=== PATIENT | female | born 1980 | race Caucasian/White ===

== ENCOUNTER 2017-01-01 22:04 | Emergency (ER) | payer BC, MEDICAID ==
[~2017-01-01] VITALS: Ht 160 cm; Wt 53.0 kg
[~2017-01-01 22:04] MED LIST: ACET-141 PO
[2017-01-01 22:28] VITALS: Ht 160 cm; Wt 53.0 kg
[2017-01-01] MEDS ORDERED: SOD CHLORIDE 0.9% 1,000 ML IV STA (23:13)
[2017-01-01] MEDS ORDERED: ONDANSETRON 4 MG INJ IV STA (23:13)
[2017-01-01] MEDS ORDERED: morphine 4 MG/ML VIAL IV STA (23:13)
[2017-01-01 23:50] LABS: ABNORMAL IP MESSAGE 1; HEMATOCRIT 35.1 % (37.0-47.0); HEMOGLOBIN 11.3 g/dl (12.0-16.0); MEAN CORPUSCULAR HEMOGLOBIN 26.9 pg (29.0-33.0); MEAN CORPUSCULAR HGB CONC 32.2 g/dl (32.0-37.0); MEAN CORPUSCULAR VOLUME 83.6 fl (82.0-101.0); MEAN PLATELET VOLUME 12.8 fl (7.4-10.4); PLATELET COUNT 114 10^3/UL (140-415); RED CELL DISTRIBUTION WIDTH 15.1 % (11.5-14.5); WHITE BLOOD COUNT 10.4 10^3/ul (4.8-10.8)
[2017-01-02 00:05] LABS: ALBUMIN 4.2 g/dl (3.3-4.9); ALBUMIN/GLOBULIN RATIO 1.2; BILIRUBIN,INDIRECT 0.3 mg/dl (0-1.1); BILIRUBIN,TOTAL 0.3 mg/dl (0.2-1.3); CALCIUM 9.4 mg/dl (8.4-10.2); CREATININE 0.91 mg/dl (0.44-1.00); POTASSIUM 3.1 mmol/L (3.5-5.1); TOTAL PROTEIN 7.7 g/dl (6.1-8.1)
[2017-01-02 00:08] LABS: POSITIVE DIFF @See below
[2017-01-02 00:20] LABS: ADD UMIC YES; UR ASCORBIC ACID NEGATIVE (NEGATIVE); UR BACTERIA FEW /HPF (NONE SEEN); UR BILIRUBIN (Dip) NEGATIVE (NEGATIVE); UR BLOOD (Dip) 2+ mg/dL (NEGATIVE); UR CLARITY CLEAR (CLEAR); UR COLOR YELLOW (YELLOW); UR GLUCOSE (Dip) NEGATIVE (NEGATIVE); UR KETONES (Dip) TRACE mg/dL (NEGATIVE); UR LEUKOCYTE ESTERASE (Dip) 2+ Leu/ul (NEGATIVE); UR MUCUS FEW /HPF (NONE SEEN); UR NITRITE (Dip) POSITIVE (NEGATIVE); UR RBC 4 /HPF (0-5); UR SPECIFIC GRAVITY (Dip) 1.011 (1.003-1.030); UR TOTAL PROTEIN (Dip) NEGATIVE (NEGATIVE); UR UROBILINOGEN (Dip) NEGATIVE (NEGATIVE)
--- NOTE | 2017-01-02 01:00 | RADRPT ---
PROCEDURE: CT abdomen and pelvis without contrast. CLINICAL INDICATION: Abdominal pain TECHNIQUE: CT scan of the abdomen and pelvis without contrast was performed. Sagittal and coronal reformatted images were obtained from the axial source images. CTDI = 4.92 mGy; DLP = 267.98 mGy-cm COMPARISON: None available. FINDINGS: Visualized lower thorax: Trace dependent subsegmental atelectasis is noted without infiltrate. The re is no evidence for pleural effusion. Liver, gallbladder, pancreas and spleen: The liver is normal and size, contour and attenuation. Th ere is no evidence for a liver mass or ductal dilatation. The gallbladder is unremarkable. No comm on bile duct abnormality is demonstrated. The pancreas is unremarkable. Borderline splenomegaly th e spleen 13 cm in greatest dimension. Adrenal glands and genitourinary system: The adrenal glands are normal bilaterally. Bilateral nephr omegaly caused by multiple bilateral renal cysts, the pattern consistent with polycystic kidney dise ase. The right kidney as some proteinaceous cysts and small nonobstructing calculi of approximately 1 mm in the interpolar region. Additional 2 mm calculus of the left lower pole is present without hydronephrosis of either kidney. The ureters are unremarkable. No urinary bladder abnormality is d emonstrated. The uterus and adnexa are unremarkable. Gastrointestinal system: The stomach is normal in caliber with no abnormality of significance. The small bowel is normal in caliber with no ileus, obstruction or wall thickening. The appendix and s urrounding fat are within the limits of normal. A mild to moderate constipation pattern is present. There is no evidence for colitis or diverticulitis. Peritoneum, retroperitoneum, lymph nodes and vessels: The abdominal aorta is normal in caliber. The re is no evidence for atherosclerotic calcification. The inferior vena cava is unremarkable. There is no evidence for adenopathy or mass. There is no ascites. No pneumoperitoneum is identified. Osseous structures and musculoskeletal findings: There is no fracture, lytic or blastic lesion. Mi ld degenerative disk disease 5 S1 is noted. No muscular abnormality or soft tissue pathology is pre sent. RPTAT:JAMISONJR IMPRESSION: 1. Polycystic kidney disease resulting in nephromegaly with small bilateral nonobstructing intrarena l calculi. 2. Mild splenomegaly. 3. Constipation pattern without evidence of colitis. 4. Degenerative disk disease at L5-S1. Socrates Daniels, Physician Date Time Electronically viewed and signed by Socrates Daniels, Physician on 01/02/2017 00:59 JR/
[2017-01-02] MEDS ORDERED: CEPH-443 PO (01:07)
[2017-01-02] MEDS ORDERED: ONDA4TAB14 PO (01:07)
--- NOTE | 2017-01-02 01:11 | ERD ---
ER Documentation Chief Complaint Date/Time DATE: 01/02/17 TIME: 01:09 Chief Complaint n/v since earlier today HPI This is a 36-year-old female who presents with nausea and vomiting that began today. She also admits to dysuria and increased urinary frequency. Denies any hematuria. She states she had a fever at home which took Advil. Last menstrual period is going on now. Pain is 8 out of 10 burning. ROS All systems reviewed and are negative except as per history of present illness. Medications Home Meds Active Scripts Ondansetron (Ondansetron Odt) 4 Mg Tab.rapdis, 4 MG PO Q6H Y for NAUSEA AND/OR VOMITING, #20 TAB Prov:ZAKIA POLANCO PA-C 01/02/17 Cephalexin* (Keflex*) 500 Mg Capsule, 500 MG PO TID for 7 Days, CAP Prov:ZAKIA POLANCO PA-C 01/02/17 Reported Medications Acetaminophen* (Acetaminophen*) 500 MG Extra Strength Tablet, 500 MG PO Q6 Y for PAIN AND OR ELEVATED TEMP, TAB 02/27/14 Allergies Allergies: Coded Allergies: No Known Allergy (Unverified , 02/27/14) PMhx/Soc History of Surgery: No Anesthesia Reaction: No Hx Neurological Disorder: No Hx Respiratory Disorders: No Hx Cardiac Disorders: No Hx Psychiatric Problems: No Hx Miscellaneous Medical Probl: No Hx Alcohol Use: No Hx Substance Use: No Hx Tobacco Use: No FmHx Family History: No diabetes Physical Exam Vitals Vital Signs Date Time Temp Pulse Resp B/P Pulse Ox O2 Delivery O2 Flow Rate FiO2 01/01/17 22:28 98.4 112 20 134/65 100 Physical Exam General: well developed, well nourished, alert, nontoxic, no distress Head: normocephalic, atraumatic Neck: Supple, nontender, no lymphadenopathy, no midline tenderness Respiratory: Clear to auscaultation bilaterally, speaks in full sentences, no use of accesory muscles or labored breathing, no rales, ronchi, or wheezing Cardiovascular: RRR, No murmurs GI: Diffuse abdominal tenderness, soft, nondistended, no CVA tenderness Back: no midline tenderness, no step offs or bony abnormalities, sensation to light touch in tact Result Diagram: 01/01/17222401/01/172224 Results 24 hrs Laboratory Tests Test 01/01/17 22:25 01/01/17 22:30 White Blood Count 10.410^3/ul Red Blood Count 4.2010^6/ul Hemoglobin 11.3g/dl Hematocrit 35.1% Mean Corpuscular Volume 83.6fl Mean Corpuscular Hemoglobin 26.9pg Mean Corpuscular Hemoglobin Concent 32.2g/dl Red Cell Distribution Width 15.1% Platelet Count 15847^3/UL Mean Platelet Volume 12.8fl Neutrophils % % Eosinophils % % Nucleated Red Blood Cells % 0.0/100WBC Neutrophils # 10^3/ul Eosinophils # 10^3/ul Sodium Level 145mmol/L Potassium Level 3.1mmol/L Chloride Level 101mmol/L Carbon Dioxide Level 23mmol/L Anion Gap 24 Blood Urea Nitrogen 12mg/dl Creatinine 0.91mg/dl Glucose Level 162mg/dl Calcium Level 9.4mg/dl Total Bilirubin 0.3mg/dl Direct Bilirubin 0.00mg/dl Indirect Bilirubin 0.3mg/dl Aspartate Amino Transf (AST/SGOT) 35IU/L Alanine Aminotransferase (ALT/SGPT) 36IU/L Alkaline Phosphatase 58IU/L Total Protein 7.7g/dl Albumin 4.2g/dl Globulin 3.50g/dl Albumin/Globulin Ratio 1.20 Lipase 37U/L Urine Color YELLOW Urine Clarity CLEAR Urine pH 6.0 Urine Specific [place] 1.011 Urine Ketones TRACEmg/dL Urine Nitrite POSITIVEmg/dL Urine Bilirubin NEGATIVEmg/dL Urine Urobilinogen NEGATIVEmg/dL Urine Leukocyte Esterase 2+Etta/ul Urine Microscopic RBC 4/HPF Urine Microscopic WBC 12/HPF Urine Bacteria FEW/HPF Urine Mucus FEW/HPF Urine Hemoglobin 2+mg/dL Urine Glucose NEGATIVEmg/dL Urine Total Protein NEGATIVEmg/dl Current Medications Medications (Trade) Dose Ordered Sig/Rudy Route PRN Reason Start Time Stop Time Status Last Admin Dose Admin Sodium Chloride (NS) 1,000 ml @ 1,000 mls/hr Q1H STAT IV 01/01/17 23:13 01/02/17 00:12 DC 01/01/17 23:30 Morphine Sulfate (morphine) 4 mg ONCE STAT IV 01/01/17 23:13 01/01/17 23:15 DC 01/01/17 23:28 Ondansetron HCl 4 mg 4 mg ONCE STAT IV 01/01/17 23:13 01/01/17 23:15 DC 01/01/17 23:28 Ceftriaxone Sodium (Rocephin) 50 ml @ 100 mls/hr ONCE ONCE IVPB 01/02/17 01:30 01/02/17 01:59 Procedures/MDM This patient is a 36-year-old female who presents with history of physical exam findings consistent with pyelonephritis. She is afebrile but tachycardic and was given IV fluids and pain medication. Her CT scan did not show any acute emergent abnormality. She was given Rocephin IV and then discharged with Keflex and Zofran. Recommended this patient follow up with her primary care doctor within 48 hours or return to the emergency room for any worsening of symptoms. However this time I do believe there is suitable for outpatient management. I answered all their questions and they agreed with the plan and were discharged home. Departure Diagnosis: Primary Impression: Pyelonephritis Condition: Stable Patient Instructions: Pyelonephritis Additional Instructions: Call your primary care doctor TOMORROW for an appointment during the next 1-2 days.See the doctor sooner or return here if your condition worsens before your appointment time. ZAKIA POLANCO PA-C Jan 02, 2017 01:11
[2017-01-02 01:26] LABS: LYMPHOCYTES # 0.2 10^3/ul (0.8-2.9); MONOCYTE # 0.2 10^3/ul (0.3-0.9); NEUTROPHIL # 6.7 10^3/ul (1.6-7.5)
[2017-01-02] MEDS ORDERED: CEFTRIAXONE 1 GM/50 ML (PMX) 50 ML IVPB ONE (01:30)
[2017-01-02 01:54] VITALS: BP 107/62; PULSE 84; RESP 18; TEMP 98.6
[2017-01-02] MEDS ORDERED: ONDANSETRON 4 MG INJ IM STA (02:07)
[2017-01-02] MEDS ORDERED: METOCLOPRAMIDE 10 MG TAB PO ONE (03:30)
== END 2017-01-02 01:55 | disposition home or self-care (01) ==
LOC: FTE 22:04
DX: N12 Tubulo-interstitial nephritis, not specified as acute or chronic (principal)
CPT/HCPCS: 36415; 74176; 80053; 81001; 83690; 85025; 96372; 96374; 96375; 99285; J0696; J2270; J2405; J7030; Z7610

== ENCOUNTER 2019-01-08 22:11 | Inpatient (IN) | payer BC ==
[~2019-01-08] VITALS: Ht 152.4 cm; Wt 54.1 kg
[~2019-01-08 22:11] MED LIST changes: +CEPH-443 PO; +LEVO750T25 PO; +ONDA4TAB14 PO
[2019-01-08 22:15] VITALS: Ht 152.4 cm; Wt 54.1 kg
[2019-01-08] MEDS ORDERED: SODIUM CHLORIDE 0.9% 1L BAG IV* STA (22:24)
[2019-01-08] MEDS ORDERED: CEFEPIME 2GM/50 ML (PMX) 50 ML IVPB STA (22:24)
[2019-01-08] MEDS ORDERED: ACETAMINOPHEN 325 MG TAB PO STA (22:24)
[2019-01-08] MEDS ORDERED: VANCOMYCIN 1 GM (PMX) 250 ML IVPB ONE (22:30)
[2019-01-09] MEDS ORDERED: ONDANSETRON 4 MG INJ IV STA (00:02)
[2019-01-09] MEDS ORDERED: morphine 4 MG/ML VIAL IV STA ×2 (00:02→03:33)
[2019-01-09] MEDS ORDERED: ONDANSETRON 4 MG INJ IV PRN ×2 (01:00→02:30)
[2019-01-09] MEDS ORDERED: ACETAMINOPHEN 325 MG TAB PO PRN ×2 (01:00→02:30)
--- NOTE | 2019-01-09 01:11 | ERD ---
ER Documentation Chief Complaint Chief Complaint L lower back pain radiating to LLQ, dysuria X 1 day HPI This is a very pleasant 38-year-old female with left lower quadrant back pain radiating to her flank for the past 1 day patient also with dysuria fevers chills nausea vomiting. Pain is mild to moderate intensity no exacerbating alleviating factors. Denies any other current complaints. ROS All systems reviewed and are negative except as per history of present illness. Medications Home Meds Active Scripts Ondansetron (Ondansetron Odt) 4 Mg Tab.rapdis, 4 MG PO Q6H PRN for NAUSEA AND/OR VOMITING, #20 TAB Prov:ZAKIA POLANCO PA-C 01/02/17 Cephalexin* (Keflex*) 500 Mg Capsule, 500 MG PO TID for 7 Days, CAP Prov:ZAKIA POLANCO PA-C 01/02/17 Reported Medications Acetaminophen* (Acetaminophen*) 500 MG Extra Strength Tablet, 500 MG PO Q6 PRN for PAIN AND OR ELEVATED TEMP, TAB 02/27/14 Allergies Allergies: Coded Allergies: No Known Allergy (Unverified , 02/27/14) PMhx/Soc Medical and Surgical Hx: pt denies Medical Hx, pt denies Surgical Hx History of Surgery: No Anesthesia Reaction: No Hx Neurological Disorder: No Hx Respiratory Disorders: No Hx Cardiac Disorders: No Hx Psychiatric Problems: No Hx Miscellaneous Medical Probl: No Hx Alcohol Use: No Hx Substance Use: No Hx Tobacco Use: No Smoking Status: Never smoker Physical Exam Vitals Vital Signs Date Temp Pulse Resp B/P (MAP) Pulse Ox O2 O2 Flow FiO2 Time Delivery Rate 01/08/19 102.8 22:37 01/08/19 102.8 98 20 139/82 100 Room Air 22:33 (101) 01/08/19 101.7 125 18 165/91 100 22:15 (115) Physical Exam Const: No acute distress Head: Atraumatic Eyes: Normal Conjunctiva ENT: Normal External Ears, Nose and Mouth. Neck: Full range of motion. No meningismus. Resp: Clear to auscultation bilaterally Cardio: Regular rate and rhythm, no murmurs Abd: Soft, non tender, non distended. Normal bowel sounds Skin: No petechiae or rashes Back: No midline or flank tenderness Ext: No cyanosis, or edema Neur: Awake and alert Psych: Normal Mood and Affect Result Diagram: 01/08/19222201/08/192222 Results 24 hrs Laboratory Tests Test 01/08/19 22:23 01/08/19 22:30 01/08/19 22:40 01/08/19 22:54 White Blood Count 16.9 10^3/ul Red Blood Count 4.57 10^6/ul Hemoglobin 12.3 g/dl Hematocrit 38.8 % Mean Corpuscular 84.9 fl Volume Mean Corpuscular 26.9 pg Hemoglobin Mean Corpuscular 31.7 g/dl Hemoglobin Concen t Red Cell 14.7 % Distribution Width Platelet Count 173 10^3/UL Mean Platelet 12.1 fl Volume Immature 0.700 % Granulocytes % Neutrophils % 79.9 % Lymphocytes % 9.0 % Monocytes % 10.0 % Eosinophils % 0.2 % Basophils % 0.2 % Nucleated Red 0.0 /100WBC Blood Cells % Immature 0.110 10^3/ul Granulocytes # Neutrophils # 13.5 10^3/ul Lymphocytes # 1.5 10^3/ul Monocytes # 1.7 10^3/ul Eosinophils # 0.0 10^3/ul Basophils # 0.0 10^3/ul Nucleated Red 0.0 10^3/ul Blood Cells # Prothrombin Time 13.7 Sec Prothrombin Time 1.1 Ratio INR International 1.04 Normalized Ratio Activated 32.1 Sec Partial Thrombopl ast Time Sodium Level 137 mmol/L Potassium Level 3.4 mmol/L Chloride Level 101 mmol/L Carbon Dioxide 24 mmol/L Level Anion Gap 12 Blood Urea 13 mg/dl Nitrogen Creatinine 0.98 mg/dl Est Glomerular > 60 mL/min Filtrat Rate mL/min Glucose Level 141 mg/dl Calcium Level 9.4 mg/dl Total Bilirubin 0.7 mg/dl Direct Bilirubin 0.00 mg/dl Indirect 0.7 mg/dl Bilirubin Aspartate Amino 21 IU/L Transf (AST/SGOT) Alanine 22 IU/L Aminotransferase (ALT/SGPT) Alkaline 89 IU/L Phosphatase Troponin I < 0.012 ng/ml Total Protein 8.4 g/dl Albumin 4.4 g/dl Globulin 4.00 g/dl Albumin/Globulin 1.10 Ratio POC Venous 1.7 mmol/L Lactate Urine Color YELLOW Urine Clarity SLIGHTLY CLOUDY Urine pH 7.0 Urine Specific 1.008 [place] Urine Ketones NEGATIVE mg/dL Urine Nitrite NEGATIVE mg/dL Urine Bilirubin NEGATIVE mg/dL Urine NEGATIVE mg/dL Urobilinogen Urine Leukocyte 3+ Etta/ul Esterase Urine Microscopic 61 /HPF RBC Urine Microscopic 79 /HPF WBC Urine Squamous FEW /HPF Epithelial Cells Urine Bacteria MODERATE /HPF Urine Hemoglobin 3+ mg/dL Urine Glucose NEGATIVE mg/dL Urine Total 1+ mg/dl Protein POC Beta HCG, NEGATIVE Qualitative Test 01/09/19 00:15 Lactic Acid Level 0.8 mmol/L Current Medications Medications Dose Sig/Rudy Start Time Status Last (Trade) Ordered Route PRN Stop Time Admin Dose Reason Admin Sodium 1,620 ml BOLUS OVER 2 01/08/19 DC 01/08/19 Chloride HOURS STAT 22:24 22:35 (NS) IV* 01/08/19 22:26 650 mg ONCE STAT 01/08/19 DC 01/08/19 Acetaminophen PO 22:24 22:37 (Tylenol 01/08/19 22:26 Tab) Cefepime HCl 50 ml @ ONCE STAT 01/08/19 DC 01/08/19 100 mls/hr IVPB 22:24 22:38 01/08/19 22:53 Vancomycin 250 ml @ ONCE ONCE 01/08/19 DC 01/08/19 HCl 125 mls/hr IVPB 22:30 00:02 01/09/19 00:29 Morphine 4 mg ONCE STAT 01/09/19 DC 01/09/19 Sulfate IV 00:02 00:09 (morphine) 01/09/19 00:04 Ondansetron 4 mg ONCE STAT 01/09/19 DC HCl (Zofran IV 00:02 Inj) 01/09/19 00:04 Ondansetron 4 mg BRIDGE ORDER 01/09/19 HCl (Zofran PRN IV 01:00 01/10/19 Inj) NAUSEA/VOMITI 00:59 NG 650 mg ER BRIDGE 01/09/19 Acetaminophen PRN PO 01:00 01/10/19 (Tylenol .MILD PAIN 00:59 Tab) 1-3 OR TEMP Procedures/MDM Medical decision makin-year-old female who looks to be early pyelonephritis. No evidence of sepsis. Patient started on antibiotics. Admitted to hospitalist team for further evaluation and management. EKG: Rate/Rhythm: Normal Sinus Rhythm QRS, ST, T-waves: No changes consistent w/ acute ischemia Impression: No evidence of ischemia or arrhythmia Chest X-ray 1V Interpreted by me: Soft Tissue: No acute abnormalities Bones: No acute abnormalities Mediastinum/Cardiac Silhouette/Lungs: No acute abnormalities Departure Diagnosis: Primary Impression: Pyelonephritis Condition: Serious ROBBY BARNEY Jan 09, 2019 01:11
[2019-01-09] MEDS ORDERED: NACL 0.9% 3 ML SYG IV SCH (02:30)
[2019-01-09 02:50] VITALS: BP 102/65; PULSE 65; RESP 20
[2019-01-09] MEDS: SOD CHLORIDE 0.9% 1,000 ML IV SCH ×4 (03:07→22:09)
[2019-01-09] MEDS ORDERED: HYDROCODONE/APAP (5/325) TAB PO PRN ×2 (04:00)
--- NOTE | 2019-01-09 06:33 | HP ---
Date/Time of Note Date/Time of Note DATE: 01/09/19 TIME: 06:30 Assessment/Plan VTE Prophylaxis Pharmacological prophylaxis: heparin Lines/Catheters IV Catheter Type (from Nrsg): Peripheral IV Assessment/Plan Assessment/Plan 1. Sepsis: Secondary to UTI and possibly pyelonephritis -IV antibiotic, IV fluid -Follow-up culture results 2. Mild hypokalemia: Replete 3. 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 patient was not aware of this -Close outpatient follow-up Result Diagram: 01/09/19 0529 01/08/19 2223 Results 24hrs Laboratory Tests Test 01/08/19 22:23 01/08/19 22:30 01/08/19 22:40 01/08/19 22:54 White Blood Count 16.9 #H Red Blood Count 4.57 Hemoglobin 12.3 Hematocrit 38.8 Mean Corpuscular 84.9 Volume Mean Corpuscular 26.9 L Hemoglobin Mean Corpuscular 31.7 L Hemoglobin Concen t Red Cell 14.7 H Distribution Width Platelet Count 173 # Mean Platelet 12.1 H Volume Immature 0.700 H Granulocytes % Neutrophils % 79.9 H Lymphocytes % 9.0 L Monocytes % 10.0 Eosinophils % 0.2 Basophils % 0.2 Nucleated Red 0.0 Blood Cells % Immature 0.110 H Granulocytes # Neutrophils # 13.5 H Lymphocytes # 1.5 Monocytes # 1.7 H Eosinophils # 0.0 Basophils # 0.0 Nucleated Red 0.0 Blood Cells # Prothrombin Time 13.7 Prothrombin Time 1.1 Ratio INR International 1.04 Normalized Ratio Activated 32.1 Partial Thrombopl ast Time Sodium Level 137 Potassium Level 3.4 L Chloride Level 101 Carbon Dioxide 24 Level Anion Gap 12 Blood Urea 13 Nitrogen Creatinine 0.98 Est Glomerular > 60 Filtrat Rate mL/min Glucose Level 141 Calcium Level 9.4 Total Bilirubin 0.7 Direct Bilirubin 0.00 Indirect 0.7 Bilirubin Aspartate Amino 21 Transf (AST/SGOT) Alanine 22 Aminotransferase (ALT/SGPT) Alkaline 89 Phosphatase Troponin I < 0.012 Total Protein 8.4 H Albumin 4.4 Globulin 4.00 H Albumin/Globulin 1.10 Ratio POC Venous 1.7 Lactate Urine Color YELLOW Urine Clarity SLIGHTLY CLOUDY A Urine pH 7.0 Urine Specific 1.008 [place] Urine Ketones NEGATIVE Urine Nitrite NEGATIVE Urine Bilirubin NEGATIVE Urine NEGATIVE Urobilinogen Urine Leukocyte 3+ H Esterase Urine Microscopic 61 H RBC Urine Microscopic 79 H WBC Urine Squamous FEW Epithelial Cells Urine Bacteria MODERATE Urine Hemoglobin 3+ H Urine Glucose NEGATIVE Urine Total 1+ H Protein POC Beta HCG, NEGATIVE Qualitative Test 01/09/19 00:15 01/09/19 05:29 Lactic Acid Level 0.8 White Blood Count 14.5 H Red Blood Count 3.71 L Hemoglobin 10.2 L Hematocrit 31.9 L Mean Corpuscular 86.0 Volume Mean Corpuscular 27.5 L Hemoglobin Mean Corpuscular 32.0 Hemoglobin Concen t Red Cell 14.8 H Distribution Width Platelet Count 123 #L Mean Platelet 12.6 H Volume Immature 0.700 H Granulocytes % Neutrophils % 80.9 H Lymphocytes % 7.4 L Monocytes % 10.6 Eosinophils % 0.2 Basophils % 0.2 Nucleated Red 0.0 Blood Cells % Immature 0.100 H Granulocytes # Neutrophils # 11.8 H Lymphocytes # 1.1 Monocytes # 1.5 H Eosinophils # 0.0 Basophils # 0.0 Nucleated Red 0.0 Blood Cells # HPI/ROS Admit Date/Time Admit Date/Time Jan 09, 2019 at 00:53 Hx of Present Illness Patient is a 38-year-old female with no significant past medical history who presents the ER complaining of left flank and left lower quadrant abdominal pain. She also reported fever and dysuria. When she presented to the ER, she was febrile with a temperature as high as 102.8, heart rate 125. WBC 17,000. UA consistent with UTI. CT abdomen/pelvis shows autosomal dominant PCKD and a small nonobstructive bilateral renal calcification otherwise no acute findings. Patient was unaware of polycystic kidney disease. PMH/Family/Social Past Medical History Medical History: no pertinent history Medications Current Medications Ondansetron HCl (Zofran Inj) 4 mg BRIDGE ORDER PRN IV NAUSEA/VOMITING; Start 01/09/19 at 01:00; Stop 01/10/19 at 00:59 Acetaminophen (Tylenol Tab) 650 mg ER BRIDGE PRN PO .MILD PAIN 1-3 OR TEMP; Start 01/09/19 at 01:00; Stop 01/10/19 at 00:59 Sodium Chloride 1,000 ml @ 125 mls/hr Q8H IV Last administered on 01/09/19at 03:07; Admin Dose 125 MLS/HR; Start 01/09/19 at 02:18 IV Flush (NS 3 ml) 3 ml PER PROTOCOL IV ; Start 01/09/19 at 02:30 Ondansetron HCl (Zofran Inj) 4 mg Q6H PRN IV NAUSEA/VOMITING; Start 01/09/19 at 02:30 Acetaminophen (Tylenol Tab) 650 mg Q6H PRN PO .PAIN 1-3 OR TEMP; Start 01/09/19 at 02:30 Enoxaparin Sodium (Lovenox) 40 mg DAILY SC ; Start 01/09/19 at 09:00 Ceftriaxone Sodium 50 ml @ 100 mls/hr DAILY IVPB ; Start 01/09/19 at 09:00 Acetaminophen/ Hydrocodone Bitart ([place] (5/325)) 1 tab Q4H PRN PO MODERATE PAIN LEVEL 4-6 Last administered on 01/09/19at 03:53; Admin Dose 1 TAB; Start 01/09/19 at 04:00 Acetaminophen/ Hydrocodone Bitart ([place] (5/325)) 2 tab Q4H PRN PO MODERATE PAIN LEVEL 4-6; Start 01/09/19 at 04:00 Coded Allergies: No Known Allergy (Unverified , 02/27/14) Past Surgical History Past Surgical Hx: no surgical history Family History Significant Family History: no pertinent family hx Social History Alcohol Use: none Smoking Status: Never smoker Drug Use: none Exam/Review of Systems Vital Signs Vitals Vital Signs Date Temp Pulse Resp B/P (MAP) Pulse Ox O2 O2 Flow FiO2 Time Delivery Rate 01/09/19 98.4 65 20 102/65 100 02:50 (77) 01/09/19 Room Air 02:29 Exam Constitutional: alert, oriented, well developed Head: normocephalic, atraumatic Eyes: EOMI, PERRL Respiratory: clear to auscultation, normal air movement Cardiovascular: regular rate and rhythm, nl pulses Gastrointestinal: soft, tender (Left lower quadrant and left flank pain) Extremities: normal pulses ROBBY NAPIER MD Jan 09, 2019 06:33
[2019-01-09 07:54] VITALS: BP 94/52; PULSE 73; RESP 18
[2019-01-09] MEDS: CEFTRIAXONE 1 GM/50 ML (PMX) 50 ML IVPB SCH (09:10)
[2019-01-09] MEDS: ENOXAPARIN 40 MG/0.4 ML SYG SC SCH (09:15)
[2019-01-09] MEDS ORDERED: MAGNESIUM OXIDE 400 MG TAB PO ONE (09:30)
[2019-01-09] MEDS ORDERED: POTASSIUM CHLORIDE 20 MEQ POWDER FOR ORAL SOLN PO ONE (11:30)
[2019-01-09] MEDS: HYDROmorphONE 0.5 MG/0.5 ML SYG IV PRN ×3 (11:54→22:09)
--- NOTE | 2019-01-09 13:03 | PN ---
Date/Time of Note Date/Time of Note DATE: 01/09/19 TIME: 13:03 Objective Vitals Vital Signs Date Temp Pulse Resp B/P (MAP) Pulse Ox O2 O2 Flow FiO2 Time Delivery Rate 01/09/19 98.1 73 18 94/52 (66) 98 07:54 01/09/19 Room Air 02:29 Intake and Output 01/08/19 01/08/19 01/09/19 1515:00 23:00 07:00 IntakeIntake Total 450 ml BalanceBalance 450 ml Results Result Diagram: 01/09/19 0529 01/09/19 0529 Medications Medications Current Medications Ondansetron HCl (Zofran Inj) 4 mg BRIDGE ORDER PRN IV NAUSEA/VOMITING; Start 01/09/19 at 01:00; Stop 01/10/19 at 00:59 Acetaminophen (Tylenol Tab) 650 mg ER BRIDGE PRN PO .MILD PAIN 1-3 OR TEMP; Start 01/09/19 at 01:00; Stop 01/10/19 at 00:59 Sodium Chloride 1,000 ml @ 125 mls/hr Q8H IV Last administered on 01/09/19at 11:58; Admin Dose 125 MLS/HR; Start 01/09/19 at 02:18 IV Flush (NS 3 ml) 3 ml PER PROTOCOL IV ; Start 01/09/19 at 02:30 Ondansetron HCl (Zofran Inj) 4 mg Q6H PRN IV NAUSEA/VOMITING; Start 01/09/19 at 02:30 Acetaminophen (Tylenol Tab) 650 mg Q6H PRN PO .PAIN 1-3 OR TEMP; Start 01/09/19 at 02:30 Enoxaparin Sodium (Lovenox) 40 mg DAILY SC Last administered on 01/09/19at 09:15; Admin Dose 40 MG; Start 01/09/19 at 09:00 Ceftriaxone Sodium 50 ml @ 100 mls/hr DAILY IVPB Last administered on 01/09/19at 09:10; Admin Dose 100 MLS/HR; Start 01/09/19 at 09:00 Acetaminophen/ Hydrocodone Bitart ([place] (5/325)) 1 tab Q4H PRN PO MODERATE PAIN LEVEL 4-6 Last administered on 01/09/19at 03:53; Admin Dose 1 TAB; Start 7/31/19 at 04:00 Hydromorphone HCl (Dilaudid) 0.5 mg Q4H PRN IV SEVERE PAIN LEVEL 7-10 Last administered on 01/09/19at 11:54; Admin Dose 0.5 MG; Start 01/09/19 at 11:30 Lines/Catheters IV Catheter Type: Angel in Place: No Assessment/Plan Hospital Course Subjective Patient still in excruciating pain, however alert and oriented Objective Physical exam General: Patient is laying in bed and answers questions appropriately Mentation: Patient is alert and oriented 4, Head: Normocephalic atraumatic Eyes: EOMI, pupils reactive to light Neck: Supple, nontender, midline Respiratory: Clear to auscultation bilaterally Cardiovascular: regular rate, no obvious murmurs Gastrointestinal: Mildly tender to palpation, bowel sounds heard. Neurological: Moves all extremities spontaneously Skin: No new skin lesions Musculoskeletal: Left flank tenderness Assessment and plan UTI with likely pyelonephritis -IV antibiotic -IV fluid -Follow-up on culture results Sepsis -Secondary to above UTI -IV antibiotic -IV fluid -Culture pending Electrolyte derangement -Replete as needed Autosomal dominant positive kidney disease -Nephrology consulted -Patient will need to follow-up outpatient, explained to patient in detail, patient understands, her father has a history of being on dialysis for 10 years Disposition -Continue IV antibiotics, continue pain control, patient knows to be very careful as she is needing high doses of very strong pain medication to keep pain at bay, patient is tearful without pain medication. CLAYTON MCCARTHY Jan 09, 2019 13:03
[2019-01-09 14:40] VITALS: BP 127/80; PULSE 95; RESP 17
[2019-01-09 19:29] VITALS: BP 110/67; PULSE 90; RESP 18
--- NOTE | 2019-01-09 20:19 | CONS ---
DATE OF ADMISSION: 01/09/2019 DATE OF CONSULTATION: 01/09/2019 TYPE OF CONSULTATION: Nephrology. REASON FOR CONSULTATION: Possible polycystic kidney disease. REQUESTING PHYSICIAN: Jayson Bueno MD. HISTORY OF PRESENT ILLNESS: This is a 38-year-old female with no significant past medical history, w kingsley presents to [facility] with complaint of left flank pain over her abdomen, fever s, dysuria. The patient upon arrival to the emergency room was noted to be febrile with a temperatur e of 102.8, tachycardic. The patient had a white count of 17,000. The patient had a UA consistent w ith UTI. A CT scan was performed which showed multiple cysts, bilateral kidneys consistent with poss ible polycystic kidney disease. The patient was started on IV fluids, antibiotic therapy, pain contr ol and admitted to med/surg for further evaluation. In terms of patient's renal history, the patient denies any prior history of polycystic kidney diseas e. Denies any history of acute kidney injury or CKD. The patient does admit having a father who had kidney disease and was started on hemodialysis. PAST MEDICAL HISTORY: None. ALLERGIES: NONE. FAMILY HISTORY: Positive family for the patient's father had kidney failure, was on dialysis etiolo gy and reason unknown. MEDICATIONS: Reviewed. PAST SURGICAL HISTORY: None. REVIEW OF SYSTEMS: A 14-point review of systems conducted. Pertinent positives stated in HPI, other sullivan negative. PHYSICAL EXAMINATION: VITAL SIGNS: Blood pressure is 127/80, respirations 17, pulse 95, temperature 99.0. HEENT: Head is normocephalic. NECK: Supple. HEART: Regular rate. LUNGS: Show diminished breath sounds at the base. ABDOMEN: Soft. Positive CVA tenderness, left flank. DERMATOLOGIC: No rashes. MUSCULOSKELETAL: No joint effusions. EXTREMITIES: Negative for clubbing, cyanosis, or edema. LABORATORY DATA: Reviewed. IMAGING STUDIES: Reviewed. ASSESSMENT AND PLAN: This 38-year-old female presents with: 1. Multiple bilateral renal cysts concerning for autosomal dominant polycystic kidney disease. The patient has family history of kidney disease. Plan is to check a renal ultrasound to confirm finding s of multiple cysts. If the patient has at least 3 unilateral or bilateral cysts, given positive fam tung history, these findings would be consistent with ____ . At this point, will continue to monitor. Continue to renally dose all meds. 2. Urinary tract infection. Continue antibiotic therapy. 3. Left flank pain. Continue pain medications. Thank you, Dr. Bueno, for this interesting consult. It will be a pleasure to follow patient with you t hroughout the hospital course. Dictated By: AMITA ORTIZ/HANNAH Conf#: [id number] DID#: [id number]
[2019-01-10 01:15] VITALS: BP 115/64; PULSE 86; RESP 16
[2019-01-10] MEDS: SOD CHLORIDE 0.9% 1,000 ML IV SCH ×2 (06:08→18:29)
[2019-01-10 07:24] VITALS: BP 113/60; PULSE 80; RESP 18
--- NOTE | 2019-01-10 07:51 | PN ---
DATE: 01/10/2019 SUBJECTIVE: The patient is stable, no events overnight. Patient continues to have CVA tenderness. OBJECTIVE: VITAL SIGNS: Blood pressure is 115/64, respiration 16, pulse 86, temperature 98.8. HEENT: Head is normocephalic. NECK: Supple. HEART: Regular rate. LUNGS: Show diminished breath sounds at the base. ABDOMEN: Soft, nontender to palpation. No rebound or guarding. EXTREMITIES: Negative for clubbing, cyanosis, no edema. DERMATOLOGIC: No rashes. MUSCULOSKELETAL: No joint effusion. NEUROLOGIC: No focal deficits. MEDICATIONS: Have been reviewed. LABORATORY DATA: Has been reviewed. IMAGING STUDIES: Renal ultrasound was reviewed. ASSESSMENT AND PLAN: 1. Multiple bilateral renal cysts, most likely consistent with autosomal-dominant polycystic kidney disease. The patient's renal ultrasound showed multiple cysts consistent with chronic kidney disease . The patient would likely benefit from an MRI to evaluate renal mass and size. Recommendation at t his point is to continue current treatment plan. The patient does have proteinuria on urinalysis. T he patient would benefit from an RINKU inhibitor or ARB which can be started in outpatient setting. Ot herwise, renally dose all meds, avoid nephrotoxins. 2. Urinary tract infection. Continue current antibiotic regimen. Follow up cultures. 3. Left flank pain secondary to pyelonephritis, urinary tract infection. Continue pain control. Dictated By: AMITA CAMPBELL DO NR/NTS Conf#: [id number] DID#: [id number] CC: ROBBY NAPIER MD;*EndCC*
[2019-01-10] MEDS: HYDROmorphONE 0.5 MG/0.5 ML SYG IV PRN (08:45)
[2019-01-10] MEDS: CEFTRIAXONE 1 GM/50 ML (PMX) 50 ML IVPB SCH (08:45)
[2019-01-10] MEDS: ENOXAPARIN 40 MG/0.4 ML SYG SC SCH (08:47)
[2019-01-10] MEDS ORDERED: morphine 2 MG INJ IV PRN (11:00)
[2019-01-10] MEDS ORDERED: LEVOFLOXACIN 750MG/D5W (PMX) 150 ML IVPB SCH (11:00)
[2019-01-10 12:59] VITALS: BP 108/53; PULSE 76; RESP 18
--- NOTE | 2019-01-10 15:43 | PN ---
Date/Time of Note Date/Time of Note DATE: 01/10/19 TIME: 15:42 Objective Vitals Vital Signs Date Temp Pulse Resp B/P (MAP) Pulse Ox O2 O2 Flow FiO2 Time Delivery Rate 01/10/19 98.1 76 18 108/53 100 12:59 (71) 01/09/19 Room Air 02:29 Intake and Output 01/09/19 01/09/19 01/10/19 1515:00 23:00 07:00 IntakeIntake Total 1500 ml 1840 ml 1360 ml OutputOutput Total 1200 ml BalanceBalance 1500 ml 1840 ml 160 ml Results Result Diagram: 01/10/19 0507 01/10/19 0507 Medications Medications Current Medications Sodium Chloride 1,000 ml @ 125 mls/hr Q8H IV Last administered on 01/10/19at 06:08; Admin Dose 125 MLS/HR; Start 01/09/19 at 02:18 IV Flush (NS 3 ml) 3 ml PER PROTOCOL IV ; Start 01/09/19 at 02:30 Ondansetron HCl (Zofran Inj) 4 mg Q6H PRN IV NAUSEA/VOMITING Last administered on 01/09/19at 22:09; Admin Dose 4 MG; Start 01/09/19 at 02:30 Acetaminophen (Tylenol Tab) 650 mg Q6H PRN PO .PAIN 1-3 OR TEMP; Start 01/09/19 at 02:30 Enoxaparin Sodium (Lovenox) 40 mg DAILY SC Last administered on 01/10/19at 08:47; Admin Dose 40 MG; Start 01/09/19 at 09:00 Acetaminophen/ Hydrocodone Bitart ([place] (5/325)) 1 tab Q4H PRN PO MODERATE PAIN LEVEL 4-6 Last administered on 01/09/19at 03:53; Admin Dose 1 TAB; Start 01/09/19 at 04:00 Levofloxacin/ Dextrose 150 ml @ 100 mls/hr Q24H IVPB Last administered on 01/10/19at 12:06; Admin Dose 100 MLS/HR; Start 01/10/19 at 11:00 Morphine Sulfate (morphine) 2 mg Q4H PRN IV SEVERE PAIN LEVEL 7-10 Last administered on 01/10/19at 13:30; Admin Dose 2 MG; Start 01/10/19 at 11:00 VTE Prophylaxis Risk score (from Nsg)>0 risk: 1 SCD applied (from Ns): Yes Lines/Catheters IV Catheter Type: Angel in Place: No Assessment/Plan Hospital Course Subjective Patient pain significantly improved Objective Physical exam General: Patient is laying in bed and answers questions appropriately Mentation: Patient is alert and oriented 4, Head: Normocephalic atraumatic Eyes: EOMI, pupils reactive to light Neck: Supple, nontender, midline Respiratory: Clear to auscultation bilaterally Cardiovascular: regular rate, no obvious murmurs Gastrointestinal: Mildly tender to palpation, bowel sounds heard. Neurological: Moves all extremities spontaneously Skin: No new skin lesions Musculoskeletal: Left flank tenderness, very mild Assessment and plan UTI with likely pyelonephritis -IV antibiotic -IV fluid -Follow-up on culture results Sepsis -Secondary to above UTI -IV antibiotic -IV fluid -Culture pending Electrolyte derangement -Replete as needed Autosomal dominant positive kidney disease -Nephrology consulted -Patient will need to follow-up outpatient, explained to patient in detail, patient understands, her father has a history of being on dialysis for 10 years Disposition -Continue IV antibiotics, continue pain control, CLAYTON MCCARTHY Jan 10, 2019 15:43
[2019-01-10 19:55] VITALS: BP 124/77; PULSE 94; RESP 19
[2019-01-11 03:01] VITALS: BP 111/63; PULSE 89; RESP 18
[2019-01-11] MEDS: SOD CHLORIDE 0.9% 1,000 ML IV SCH (03:39)
[2019-01-11 08:26] VITALS: BP 112/61; PULSE 85; RESP 18
--- NOTE | 2019-01-11 08:29 | PN ---
DATE: 01/11/2019 SUBJECTIVE: The patient is stable, no events overnight. OBJECTIVE: VITAL SIGNS: Blood pressure is 111/60, respirations 18, pulse 99, temperature 98.9. HEENT: Head is normocephalic. NECK: Supple. HEART: Regular rate. LUNGS: Show diminished breath sounds at the base. ABDOMEN: Soft, nontender to palpation without rebound or guarding. EXTREMITIES: Negative for clubbing, cyanosis, no edema. DERMATOLOGIC: No rashes. MUSCULOSKELETAL: No joint effusions. NEUROLOGIC: No change in exam. MEDICATIONS: Have been reviewed. LABORATORY DATA: Has been reviewed. IMAGING STUDIES: Have been reviewed. ASSESSMENT AND PLAN: 1. Multiple bilateral renal cysts, most likely consistent with autosomal dominant polycystic kidney disease. The patient's renal ultrasound and CT scan are consistent with multiple cysts, consistent w ith polycystic kidney disease. At this point, would recommend supportive care, treat ongoing urinary tract infection. The patient did have proteinuria on urinalysis and would likely benefit from RINKU i nhibitor or ARB which can be started in outpatient setting. Will continue to monitor closely. 2. Urinary tract infection. Continue antibiotic regimen. 3. Left flank pain secondary to pyelonephritis. Continue to treat underlying urinary tract infectio n. Continue pain control 4. Hypomagnesemia. Replete with magnesium sulfate. Dictated By: AMITA ORTIZ/NTS Conf#: [id number] DID#: [id number] CC: ROBBY NAPIER MD;*EndCC*
[2019-01-11] MEDS ORDERED: MAGNESIUM SULFATE 2 GM/50 ML 50 ML IVPB ONE (09:00)
[2019-01-11] MEDS: ENOXAPARIN 40 MG/0.4 ML SYG SC SCH (09:00)
[2019-01-11] MEDS ORDERED: MAGNESIUM OXIDE 400 MG TAB PO ONE (10:30)
[2019-01-11] MEDS ORDERED: LEVOFLOXACIN 750 MG TABLET PO SCH (11:00)
--- NOTE | 2019-01-11 11:40 | PDOCDIS ---
Discharge Instructions CONDITION [id number] Patient Condition: [id number] Stable FOLLOW UP/APPOINTMENTS Follow-up Plan 1. Please make an appointment with your primary care provider by calling the number on the back of your insurance card, please let them know that you have been diagnosed with a urinary tract infection as well as pyelonephritis. You have been treated with a 14-day course of Levaquin. 2. Please get a referral from your primary care provider for a fisheries director as you have been diagnosed with autosomal dominant polycystic kidney disease. You will need continued monitoring. Group Activities Aide that saw you here recommends you to be started on an RINKU inhibitor at a very low dose, to be started in the outpatient setting after resolution of your pyelonephritis. CLAYTON MCCARTHY Jan 11, 2019 11:40
--- NOTE | 2019-01-11 11:43 | DS ---
Date/Time of Note Date/Time of Note DATE: 01/11/19 TIME: 11:42 Discharge Summary Admission/Discharge Info Admit Date/Time Jan 09, 2019 at 00:53 Discharge Date/Time Patient Condition: Stable Hospital Course Patient is a female with no significant past medical history who presents to [facility] for abdominal and flank pain. Patient was diagnosed with pyelonephritis and treated with appropriate antibiotics. Patient awaited results of urine culture before discharge. Patient will be discharged with Levaquin to finish a 14-day course of antibiotics. Patient is doing very well and is time has absolutely no pain and will be discharged to follow-up with her primary care provider on oral antibiotics. Of note patient was coincidently diagnosed with autosomal dominant positive polycystic kidney disease and was seen by rug setter velvet who sent out pulmonary labs and also found proteinuria on UA which he recommended outpatient starting of a RINKU inhibitor once patient's pyelonephritis has subsided. Patient is doing well and will be discharged Discharge diagnosis UTI with pyelonephritis Sepsis, resolved Electronic derangement Polycystic kidney disease, autosomal dominant Home Meds Active Scripts Levofloxacin* (Levaquin*) 750 Mg Tablet, 750 MG PO DAILY for 11 Days, #11 TAB Prov:CLAYTON MCCARTHY 01/11/19 Discontinued Reported Medications Acetaminophen* (Acetaminophen*) 500 MG Extra Strength Tablet, 500 MG PO Q6 PRN for PAIN AND OR ELEVATED TEMP, TAB 02/27/14 Discontinued Scripts Ondansetron (Ondansetron Odt) 4 Mg Tab.rapdis, 4 MG PO Q6H PRN for NAUSEA AND/OR VOMITING, #20 TAB Prov:ZAKIA POLANCO PA-C 01/02/17 Cephalexin* (Keflex*) 500 Mg Capsule, 500 MG PO TID for 7 Days, CAP Prov:ZAKIA POLANCO PA-C 01/02/17 Follow-up Plan 1. Please make an appointment with your primary care provider by calling the number on the back of your insurance card, please let them know that you have been diagnosed with a urinary tract infection as well as pyelonephritis. You have been treated with a 14-day course of Levaquin. 2. Please get a referral from your primary care provider for a rug setter velvet as you have been diagnosed with autosomal dominant polycystic kidney disease. You will need continued monitoring. Sped Teacher that saw you here recommends you to be started on an RINKU inhibitor at a very low dose, to be started in the outpatient setting after resolution of your pyelonephritis. Primary Care Provider Not On Staff Doctor Time spent on discharge: > 30 minutes Pending Labs Laboratory Tests Test 01/11/19 05:08 White Blood Count 9.7 10^3/ul (4.8-10.8) Red Blood Count 3.58 10^6/ul (4.20-5.40) Hemoglobin 9.7 g/dl (12.0-16.0) Hematocrit 30.7 % (37.0-47.0) Mean Corpuscular Volume 85.8 fl (82.0-101.0) Mean Corpuscular Hemoglobin 27.1 pg (29.0-33.0) Mean Corpuscular Hemoglobin Concent 31.6 g/dl (32.0-37.0) Red Cell Distribution Width 14.6 % (11.5-14.5) Platelet Count 155 10^3/UL (140-415) Mean Platelet Volume 12.2 fl (7.4-10.4) Immature Granulocytes % 0.400 % (0.001-0.429) Neutrophils % 75.5 % (39.0-77.0) Lymphocytes % 10.1 % (15.0-51.0) Monocytes % 13.6 % (0.0-11.0) Eosinophils % 0.2 % (0.0-7.0) Basophils % 0.2 % (0.0-2.0) Nucleated Red Blood Cells % 0.0 /100WBC (0.0-0.0) Immature Granulocytes # 0.040 10^3/ul (0.0-0.031) Neutrophils # 7.3 10^3/ul (1.6-7.5) Lymphocytes # 1.0 10^3/ul (0.8-2.9) Monocytes # 1.3 10^3/ul (0.3-0.9) Eosinophils # 0.0 10^3/ul (0.0-0.5) Basophils # 0.0 10^3/ul (0.0-0.1) Nucleated Red Blood Cells # 0.0 10^3/ul (0.0-0.0) Sodium Level 140 mmol/L (135-144) Potassium Level 3.6 mmol/L (3.5-5.1) Chloride Level 109 mmol/L (97-110) Carbon Dioxide Level 23 mmol/L (21-31) Anion Gap 8 (5-13) Blood Urea Nitrogen 8 mg/dl (7-20) Creatinine 0.91 mg/dl (0.44-1.00) Est Glomerular Filtrat Rate mL/min > 60 mL/min (>60) Glucose Level 129 mg/dl (70-220) Calcium Level 8.4 mg/dl (8.4-10.2) Phosphorus Level 3.1 mg/dl (2.5-4.9) Magnesium Level 1.6 mg/dl (1.7-2.5) CLAYTON MCCARTHY Jan 11, 2019 11:43
== END 2019-01-11 12:11 | disposition home or self-care (01) | DRG 872 ==
LOC: E/R 22:11 → 2NE 01-09 00:53
PROVIDERS: ADMIT Internal Medicine; ATTEND Internal Medicine
DX: A41.9 Sepsis, unspecified organism (principal); N12 Tubulo-interstitial nephritis, not specified as acute or chronic; Q61.2 Polycystic kidney, adult type; N39.0 Urinary tract infection, site not specified; B96.20 Unspecified Escherichia coli [E. coli] as the cause of diseases classified elsewhere; B96.89 Other specified bacterial agents as the cause of diseases classified elsewhere; N18.9 Chronic kidney disease, unspecified; E87.6 Hypokalemia
CPT/HCPCS: 36415; 71045; 74176; 76775; 80048; 80053; 81001; 81003; 81025; 82043; 83605; 83735; 84100; 84155; 84300; 84484; 85025; 85610; 85730; 87086; 93005; 96374; 96375; J0692; J0696; J1170; J1650; J1956; J2270; J2405; J3370; J3475; J7030